=== PATIENT | female | born 1975 | race Caucasian/White ===

== ENCOUNTER 2018-08-08 17:00 | Inpatient (IN) | payer MEDICAID ==
--- NOTE | 2018-08-08 17:35 | ED Physician Chart ---
ED Chief Complaint/HPI - Patient Information Date Seen:: 08/08/18 Time Seen:: 17:10 Chief Complaint:: Chest Pain History of Present Illness:: onset x 3 days of intermittent, exertional, pressure type Chest Pain with Dyspnea, N/V; pt took ASA prior to ER arrival; pt denies trauma, H/As, neck pain , Abd. Pain, A/D/C, fever, chills, or urinary s/s Allergies:: Allergies Allergy/AdvReac Type Severity Reaction Status Date / Time No Known Allergies Allergy Verified 08/08/18 17:14 Vitals:: Vital Signs - 8 hr 08/08/18 17:14 Temp 98.4 F HR 60 RR 12 BP 121/67 O2 Sat % 98 Historian:: Patient, Family Member Review:: Nurse's Note Reviewed, Old Chart Reviewed ED Review of Systems - Review of Systems General/Constitutional: No fever, No chills, No weight loss, No weakness, No diaphoresis, No edema, No loss of appetite Skin: No skin lesions, No rash, No bruising Head: No headache, No light-headedness Eyes: No loss of vision, No pain, No diplopia ENT: No earache, No nasal drainage, No sore throat, No tinnitus Neck: No neck pain, No swelling, No thyromegaly, No stiffness, No mass noted Cardio Vascular: Chest pain, No palpitations, No PND, No orthopnea, No edema Pulmonary: SOB, No cough, No sputum, No wheezing GI: No nausea, No vomiting, No diarrhea, No pain, No melena, No hematochezia, No constipation, No hematemesis G/U: No dysuria, No frequency, No hematuria, No nacturia Infection Control Manager: No vaginal discharge, No abnormal vaginal bleed, No contraction Musculoskeletal: No bone or joint pain, No back pain, No muscle pain Endocrine: No polyuria, No polydipsia Psychiatric: No prior psych history, No depression, No anxiety, No suicidal ideation, No homicidal ideation, No auditory hallucination, No visual hallucination Hematopoietic: No bruising, No lymphadenopathy Allergic/Immuno: No urticaria, No angioedema Neurological: No syncope, No focal symptoms, No weakness, No paresthesia, No headache, No seizure, No dizziness, No confusion, No vertigo ED Past Medical History - Past Medical History Obtainable: Yes Past Medical History: HTN, Dyslipidemia Family History: HTN Social History: Smoker, No Alcohol, No Drug Use, Surgical History: None Psychiatricy History: None Medication: Reviewed ED Physical Exam - Physical Examination General/Constitutional: Awake, Well-developed, well-nourished, Alert, No distress, GCS 15, Non-toxic appearing, Ambulatory Head: Atraumatic Eyes: Lids, conjuctiva normal, PERRL, EOMI Skin: Nl inspection, No rash, No skin lesions, No ecchymosis, Well hydrated, No lymphadenopathy ENMT: External ears, nose nl, TM canals nl, Nasal exam nl, Lips, teeth, gums nl , Oropharynx nl, Tonsils nl Neck: Nontender, Full ROM w/o pain, No JVD, No nuchal rigidity, No bruit, No mass, No stridor Other Neck comments:: supple; no meningeal signs; no cervical tenderness; no bruits Respiratory: Nl effort/Exclusion, Clear to Auscultation, No Wheeze/Rhonchi/Rales Cardio Vascular: RRR, No murmur, gallop, rubs, NL S1 S2, Carotid/Femoral/Distal pulses equal bilaterally GI: No tenderness/rebounding/guarding, No organomegaly, No hernia, Normal BS's, Nondistended, No mass/bruits, No McBurney tenderness, Rectum exam nl Other GI comments:: no pulsatile masses : No CVA tenderness Extremities: No tenderness or effusion, Full ROM, normal strength in all extremities, No edema, Normal digits & nails Neuro/Psych: Alert/oriented, DTR's symmetric, Normal sensory exam, Normal motor strength, Judgement/insight normal, Mood normal, Normal gait, No focal deficits Misc: Normal back, No paraspinal tenderness ED Labs/Radiology/EKG Results - Lab Results Comments:: Reviewed - Radiology Results Comments:: Reviewed - EKG Interpretations EKG Time:: 17:03 Rate & Rhythm: 60; NSR Comments:: ST-T Depression cw Ischemic Changes ED Septic Shock - . Is Septic Shock (SBP<90, OR Lactate>4 mmol\L) present?: No - <6hrs of presentation: Vital Signs: Vital Signs - 8 hr 08/08/18 17:14 Temp 98.4 F HR 60 RR 12 BP 121/67 O2 Sat % 98 ED Reassessment (Disposition) - Reassessment Reassessment Condition:: Improved - Diagnosis Diagnosis:: Chest Pain; Dyspnea; N/V; Angina Pectoris; Myocardial Ischemia; Unstable Angina ; ITP; HTN; Leukocytosis; Elevated D-Dimer; Hyperlipidemia - Aftercare/Follow up Instructions Aftercare/Follow-Up Instructions:: Counseled pt regarding lab results/diagnosis & need follow up, Counseled pt & family regarding lab results/diagnosis & need follow up - Patient Disposition Discharge/Transfer:: Acute Care w/in this hosp Accepting Physician:: Dr. Sorenson Time Called:: 1800 Time Responded:: 18:00 Admitted to:: Telemetry Spoke to:: Dr. Sorenson Admitting Medical Physician:: Dr. Sorenson Condition at Disposition:: Stable, Improved
[2018-08-08 17:37] LABS: INR 1.05 (0.5-1.4); PROTHROMBIN TIME (TEST) 10.9 SECONDS (9.5-11.5)
[2018-08-08 17:41] LABS: % BASOPHILS 0.4 % (0.0-2.0); % LYMPHOCYTES 26.9 % (20.0-50.0); % MONOCYTES 4.8 % (2.0-10.0); % NEUTROPHILS 59.9 % (40.0-80.0); HEMOGLOBIN 12.2 gm/dL (12-16); LYMPHOCYTE ABSOLUTE 3.2 Th/cmm (1.5-3.0); MEAN CELL VOLUME 88.6 fl (81-100); MEAN CORPUSCULAR HEMOGLOBIN 29.3 pg (27.0-31.0); MEAN CORPUSCULAR HGB CONC 33.1 pg (28.0-36.0); MEAN PLATELET VOLUME 8.1 fl; MONOCYTE ABSOLUTE 0.6 Th/cmm (0.3-1.0); NEUTROPHILE ABSOLUTE 7.1 Th/cmm (1.8-8.0); PLATELET COUNT 37 Th/cmm (150-400); RED BLOOD COUNT 4.17 Mil/cmm (3.80-5.10); WHITE BLOOD COUNT 11.9 Th/cmm (4.8-10.8)
[2018-08-08 17:50] LABS: ALB/GLOB RATIO 1.7 (1.0-1.8); ALBUMIN 4.4 gm/dL (3.7-5.3); ALKALINE PHOSPHATASE 59 U/L (34-104); ANION GAP 13.3 (7.0-16.0); BILIRUBIN,TOTAL 1.5 mg/dL (0.3-1.0); BUN - UREA NITROGEN 7 mg/dL (7-25); CALCIUM SERUM 9.5 mg/dL (8.6-10.3); CARBON DIOXIDE 27.5 mEq/L (21.0-31.0); CHLORIDE 100 mEq/L (98-107); CHOLESTEROL 210 mg/dL (<200); CREATININE - SERUM 0.6 mg/dL (0.6-1.2); CREATININE KINASE 76 U/L (30-223); GFR AFRICAN-AMERICAN > 60.0 ml/min (>90); GFR NON AFRICAN-AMERICAN > 60.0 ml/min; GLUCOSE 112 mg/dL (70-105); HDL -HIGH DENSITY LIPOPROTEIN 45 mg/dL (23-92); POTASSIUM SERUM 3.8 mEq/L (3.5-5.1); SGOT 12 U/L (13-39); SGPT/ALT 15 U/L (7-52); SODIUM SERUM 137 mEq/L (136-145); TRIGLYCERIDES 190 mg/dL (<150)
[2018-08-08 18:07] LABS: DDIMER QUANT 428 ng/mL (100-400)
[2018-08-08 20:14] LABS: URINE SOURCE CLEAN C
[2018-08-08 20:18] LABS: URINE BILIRUBIN NEGATIVE (NEGATIVE); URINE BLOOD NEGATIVE (NEGATIVE); URINE GLUCOSE (UA) NEGATIVE (NEGATIVE); URINE KETONE NEGATIVE (NEGATIVE); URINE LEUKOCYTE ESTERASE NEGATIVE (NEGATIVE); URINE NITRATE NEGATIVE (NEGATIVE); URINE PH 6.5 (4.6 - 8.0); URINE PROTEIN NEGATIVE (NEGATIVE); URINE UROBILINOGEN 0.2 E.U./dL (0.2 - 1.0)
[2018-08-08 20:56] LABS: URINE CLARITY HAZY (CLEAR); URINE COLOR YELLOW; URINE MICROSCOPIC INDICATED? YES
[2018-08-08 20:57] LABS: URINE BACTERIA MODERATE /hpf (NONE SEEN); URINE EPITHELIAL CELLS MANY /lpf (FEW); URINE RBC 0-2 /hpf (0-5); URINE WBC 0-2 /hpf (0-5)
[2018-08-08] MEDS: Sodium Chloride 0.9% 1,000 ML IV SCH (21:12)
[2018-08-09] MEDS: HYDROmorphone 1 mg/mL 1mL Syr IVP PRN ×3 (03:09→19:34)
[2018-08-09 05:55] VITALS: BP 116/53
[2018-08-09 08:06] LABS: % BASOPHILS 0.6 % (0.0-2.0); % EOSINOPHILS 1.4 % (0.0-5.0); % LYMPHOCYTES 7.1 % (20.0-50.0); % MONOCYTES 2.7 % (2.0-10.0); % NEUTROPHILS 88.2 % (40.0-80.0); BASOPHILE ABSOLUTE 0.1 Th/cumm (0-0.2); EOSINOPHILE ABSOLUTE 0.2 Th/cmm (0.1-0.4); LYMPHOCYTE ABSOLUTE 1.1 Th/cmm (1.5-3.0); MEAN CELL VOLUME 88.1 fl (81-100); MEAN CORPUSCULAR HEMOGLOBIN 30.1 pg (27.0-31.0); MEAN CORPUSCULAR HGB CONC 34.1 pg (28.0-36.0); MEAN PLATELET VOLUME 7.2 fl; MONOCYTE ABSOLUTE 0.4 Th/cmm (0.3-1.0); NEUTROPHILE ABSOLUTE 14.2 Th/cmm (1.8-8.0); RED BLOOD COUNT 4.31 Mil/cmm (3.80-5.10); RED CELL DISTRIBUTION WIDTH 12.8 % (11.5-20.0)
[2018-08-09 08:18] LABS: ALB/GLOB RATIO 1.6 (1.0-1.8); ALBUMIN 4.2 gm/dL (3.7-5.3); ALKALINE PHOSPHATASE 56 U/L (34-104); ANION GAP 11.2 (7.0-16.0); BILIRUBIN,TOTAL 1.6 mg/dL (0.3-1.0); BUN - UREA NITROGEN 9 mg/dL (7-25); CALCIUM SERUM 9.4 mg/dL (8.6-10.3); CARBON DIOXIDE 30.9 mEq/L (21.0-31.0); CHLORIDE 103 mEq/L (98-107); CREATININE - SERUM 0.7 mg/dL (0.6-1.2); GFR AFRICAN-AMERICAN > 60.0 ml/min (>90); GFR NON AFRICAN-AMERICAN > 60.0 ml/min; GLUCOSE 130 mg/dL (70-105); POTASSIUM SERUM 4.1 mEq/L (3.5-5.1); SGOT 12 U/L (13-39); SGPT/ALT 14 U/L (7-52); SODIUM SERUM 141 mEq/L (136-145); TOTAL PROTEIN,SERUM 6.9 gm/dL (6.0-8.3)
[2018-08-09 08:44] LABS: PLATELET COUNT 22 Th/cmm (150-400)
--- NOTE | 2018-08-09 10:48 | Diagnostic Imaging Report ---
Portable chest x-ray Time: 1828 History: Chest pain Allowing for portable technique the heart size is normal. No focal pulmonary parenchymal processes. No hilar or mediastinal abnormalities. Impression: No acute abnormalities.
--- NOTE | 2018-08-09 10:57 | Diagnostic Imaging Report ---
Exam: CT examination of the pelvis. HISTORY: Abdominal pain Total DLP equals 612 CTDI equals 11.7 Findings: Multiple contiguous thin section of the abdomen pelvis obtained from lower thorax to pubic symphysis without the administration of oral or intravenous contrast material, no prior studies available for comparison. The study demonstrates normal appearance of liver parenchyma. The spleen is large. There is evidence of previous cholecystectomy. The pancreas is normal. Adrenal glands intact. The kidneys demonstrate no evidence of obstructive uropathy or nephrolithiasis. Right renal cyst measuring 1.5 cm appreciated. There is evidence for large ventral hernia containing fat and mesentery no bowel content. There is no evidence of dilatation. The appendix is intact. Mild diverticular process is noted without diverticulitis. The urinary bladder is normal. Prostate gland is prominent. Bony structures demonstrate no evidence for lytic or blastic changes. IMPRESSION: Splenomegaly Status post cholecystectomy Large lower abdominal ventral hernia containing mesenteric fat no evidence of bowel content. Clinical correlation recommended. Mild diverticulosis.
[2018-08-09 11:04] LABS: BAND NEUTROPHILE 0 % (0-10); EOSINOPHIL 1 % (0-5); LYMPHOCYTE 10 % (20-50); MONOCYTE 4 % (2-10); NEUTROPHILS 85 % (40-80)
[2018-08-09] MEDS: Sodium Chloride 0.9% 1,000 ML IV SCH ×2 (11:19→22:24)
[2018-08-09 12:17] LABS: PLATELET ESTIMATE DECREASED PLATELETS (NORMAL)
--- NOTE | 2018-08-09 12:47 | History and Physical ---
History of Present Illness - HPI Chief Complaint: Chest pain, Nausea and vomit HPI: Patient refer that 2 days ago started to have abdominal pain, nausea and vomit and the last vomits were with some blood. Later she pain went to chest and increased reason why she came to ER. During ER evaluation was found Leukocytosis , elevated D-Dimmers, and Thrombocytopenia Vital Signs: Last Vital Signs Temp 97.7 F 08/09/18 12:19 Pulse 70 08/09/18 12:19 Resp 18 08/09/18 12:19 BP 102/56 08/09/18 12:19 Pulse Ox 95 08/09/18 12:19 Past Medical History Cardiovascular: Report: No Pertinent Hx Pulmonary: Report: Asthma [employer]ERSON: Report: No Pertinent Hx GI: Report: Gastritis Psych: Report: Depression Musculoskeletal: Report: No Pertinent Hx Rheumatologic: Report: No pertinent Hx Infectious Disease: Report: No Pertinent Hx Renal/: Report: No Pertinent Hx Endocrine: Report: No Pertinent Hx Dermatology: Report: No Pertinent Hx - Past Surgical History Past Surgical History: No pertinent Hx Family Medical History - Family Member Mother History Unknown: Yes Social History Smoke: No Alcohol: None Drugs: None Lives: With Family Domestic Violence: Negative - Allergies Allergies/Adverse Reactions: Allergies Allergy/AdvReac Type Severity Reaction Status Date / Time No Known Allergies Allergy Verified 08/08/18 17:14 Review of Systems - Review of Systems Constitutional: Report: Weakness Eyes: Report: No Significant ENT: Report: No Significant Respiratory: Report: Other (Chest pressure) Cardiovascular: Report: Chest Pain Gastrointestinal: Report: Abdominal Pain Genitourinary: Report: No Significant Musculoskeletal: Report: No Significant Skin: Report: No Significant Neurological: Report: Weakness Physical Exam - Physical Exam HEENT: Report: Ears Nose Throat within normal limits Neck: Report: Within normal limits Cardiovascular Systems: Report: Regular, Rate and Rhythm Respiratory: Report: Breath Sounds are within normal limits Abdomen: Report: Tender to palpation Back: Report: Inspection of back is within normal limits. Extremities: Report: Non-tender to palpation. Skin: Report: Color of skin is within normal limits, Warm, Dry Neuro/Psych: Report: Mood affect is within normal limits - Lab Results All Lab Results last 24 hours: Laboratory Results - last 24 hr 08/08/18 08/08/18 08/08/18 17:16 17:16 17:16 WBC 11.9 H RBC 4.17 Hgb 12.2 Hct 37.0 L MCV 88.6 MCH 29.3 MCHC Differential 33.1 RDW 13.0 Plt Count 37 L MPV 8.1 Neutrophils % 59.9 Band Neutrophils % Lymphocytes % 26.9 Monocytes % 4.8 Eosinophils % 8.0 H Basophils % 0.4 Neutrophils (Manual) Lymphocytes Monocytes Eosinophils Platelet Estimate RBC Morph Micro Appear PT 10.9 INR 1.05 D-Dimer 428 H Sodium 137 Potassium 3.8 Chloride 100 Carbon Dioxide 27.5 Anion Gap 13.3 BUN 7 Creatinine 0.6 Est GFR ( Amer) > 60.0 Est GFR (Non-Af Amer) > 60.0 BUN/Creatinine Ratio 11.7 Glucose 112 H Calcium 9.5 Total Bilirubin 1.5 H AST 12 L ALT 15 Alkaline Phosphatase 59 Creatine Kinase 76 Troponin I B-Natriuretic Peptide Total Protein 7.0 Albumin 4.4 Globulin 2.6 Albumin/Globulin Ratio 1.7 Triglycerides 190 H Cholesterol 210 H LDL Cholesterol Direct 161 HDL Cholesterol 45 Serum , Qual Urine Source Urine Color Urine Clarity Urine pH Ur Specific [place] Urine Protein Urine Glucose (UA) Urine Ketones Urine Blood Urine Nitrate Urine Bilirubin Urine Urobilinogen Ur Leukocyte Esterase Urine RBC Urine WBC Ur Epithelial Cells Urine Bacteria 08/08/18 08/08/18 08/08/18 17:16 17:16 17:16 WBC RBC Hgb Hct MCV MCH MCHC Differential RDW Plt Count MPV Neutrophils % Band Neutrophils % Lymphocytes % Monocytes % Eosinophils % Basophils % Neutrophils (Manual) Lymphocytes Monocytes Eosinophils Platelet Estimate RBC Morph Micro Appear PT INR D-Dimer Sodium Potassium Chloride Carbon Dioxide Anion Gap BUN Creatinine Est GFR ( Amer) Est GFR (Non-Af Amer) BUN/Creatinine Ratio Glucose Calcium Total Bilirubin AST ALT Alkaline Phosphatase Creatine Kinase Troponin I < 0.01 L B-Natriuretic Peptide < 5.0 L Total Protein Albumin Globulin Albumin/Globulin Ratio Triglycerides Cholesterol LDL Cholesterol Direct HDL Cholesterol Serum , Qual NEGATIVE Urine Source Urine Color Urine Clarity Urine pH Ur Specific [place] Urine Protein Urine Glucose (UA) Urine Ketones Urine Blood Urine Nitrate Urine Bilirubin Urine Urobilinogen Ur Leukocyte Esterase Urine RBC Urine WBC Ur Epithelial Cells Urine Bacteria 08/08/18 08/09/18 08/09/18 19:29 07:20 07:20 WBC 16.0 H D RBC 4.31 Hgb 13.0 Hct 38.0 L MCV 88.1 MCH 30.1 MCHC Differential 34.1 RDW 12.8 Plt Count 22 L* D MPV 7.2 Neutrophils % 88.2 H Band Neutrophils % 0 Lymphocytes % 7.1 L Monocytes % 2.7 Eosinophils % 1.4 Basophils % 0.6 Neutrophils (Manual) 85 H Lymphocytes 10 L Monocytes 4 Eosinophils 1 Platelet Estimate DECREASED PLATELETS RBC Morph Micro Appear NORMAL PT INR D-Dimer Sodium 141 Potassium 4.1 Chloride 103 Carbon Dioxide 30.9 Anion Gap 11.2 BUN 9 Creatinine 0.7 Est GFR ( Amer) > 60.0 Est GFR (Non-Af Amer) > 60.0 BUN/Creatinine Ratio 12.9 Glucose 130 H Calcium 9.4 Total Bilirubin 1.6 H AST 12 L ALT 14 Alkaline Phosphatase 56 Creatine Kinase Troponin I B-Natriuretic Peptide Total Protein 6.9 Albumin 4.2 Globulin 2.7 Albumin/Globulin Ratio 1.6 Triglycerides Cholesterol LDL Cholesterol Direct HDL Cholesterol Serum , Qual Urine Source CLEAN C Urine Color YELLOW Urine Clarity HAZY Urine pH 6.5 Ur Specific [place] 1.010 Urine Protein NEGATIVE Urine Glucose (UA) NEGATIVE Urine Ketones NEGATIVE Urine Blood NEGATIVE Urine Nitrate NEGATIVE Urine Bilirubin NEGATIVE Urine Urobilinogen 0.2 Ur Leukocyte Esterase NEGATIVE Urine RBC 0-2 Urine WBC 0-2 Ur Epithelial Cells MANY Urine Bacteria MODERATE H - Assessment Assessment: Patient is awake, alert, calm, in no acute distress. Dx: Abdominal pain, Thrombocytopenia, Leukocytosis, Elevated D-Dymers. - Plan Plan: Patient is in IV NS, Pain control, IV AB, Consult with Hematology and GI requested. Will continue to monitor.
--- NOTE | 2018-08-09 18:48 | History & Physical ---
ADMIT DATE: 08/09/2018 HEMATOLOGY/ONCOLOGY CONSULTATION REFERRED BY: Dr. Sorenson. REASON FOR CONSULTATION: Thrombocytopenia. HISTORY OF PRESENT ILLNESS: The patient is a 42-year-old female, who was admitted with abdominal pain, chest pain, and vomiting. She denied bleeding from any site. She was found to have a platelet count of 22,000 today and on admission it was 37,000, therefore, I was asked to evaluate. The patient also had elevated white count and left shift on admission with abnormal bilirubin of 1.6. Otherwise, the transaminases are normal. PAST MEDICAL HISTORY: Bronchial asthma, depression, insomnia. MEDICATIONS: Antidepressants, melatonin, and inhalers for the asthma. PAST SURGICAL HISTORY: Gallbladder surgery, tubal ligation, and hysterectomy. SOCIAL HISTORY: Denied drinking. MEDICATIONS: She is on Zosyn, Zofran, Dilaudid, and Ambien. PHYSICAL EXAMINATION: GENERAL: She is awake, not in distress. VITAL SIGNS: Stable, afebrile. HEENT: Atraumatic. No mucosal lesions. NECK: Supple. CHEST: Good air entry. ABDOMEN: Soft, hernia paraumbilical reducible, tender in the epigastric and parumbilical area. SKIN: No evidence of ecchymosis or hematomas. LABORATORY DATA: White count 16, hemoglobin 13, platelets 22. Mean platelet volume 7.2, creatinine 0.7, bilirubin total 1.6. A CT scan of the abdomen reported splenomegaly, ventral hernia, diverticulosis, and status post cholecystectomy. ASSESSMENT: Low platelet count of unknown duration. The patient has splenomegaly on CT scan, which probably suggests chronic thrombocytopenia. The patient does not have bleeding and no transfusion is needed. Whether there is another etiology contributing to the thrombocytopenia that will remained to be identified. The elevated bilirubin will be worked up by obtaining a total and direct bilirubin. I will discontinue the Zosyn and switch to Rocephin because of the low platelet count. I will start steroids IV to see if there is an immune component to the thrombocytopenia that might be correctable with the use of steroids. The patient is being worked up by the auto body customizer for hepatitis and there is no evidence of hemolysis to suggest microangiopathic hemolysis with thrombocytopenia. No need to transfuse as long as the patient does not have bleeding. The coagulation workup, INR was normal on admission. I will obtain fibrinogen and PTT. If the white count remains elevated and platelets do not respond to steroids, I will consider bone marrow biopsy following evaluation since the splenic sequestration is a diagnosis of exclusion. Thank you, Dr. Sorenson, for the opportunity to participate in the care of this interesting case with you. [facility]# [id number]
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
[2018-08-09] MEDS ORDERED: cefTRIAXone 1 GM in Sodium Chloride 0.9% 50 ML IV SCH (20:00)
[2018-08-09] MEDS ORDERED: methylPREDNISolone SS 40 mg Vial IVP SCH (21:00)
--- NOTE | 2018-08-10 02:23 | Consultation ---
DATE OF CONSULTATION: 08/09/[address] Sorenson HISTORY OF PRESENT ILLNESS: This is a 42-year-old female patient complaining of epigastric pain, nausea, vomiting. Following this, the patient developed chest pain and numbness in the left arm. The patient came to the Emergency Room. The patient has nonspecific ST-segment changes and the patient is admitted. PAST MEDICAL HISTORY: The patient has a history of hypertension, hyperlipidemia, ventral hernia, splenomegaly. FAMILY HISTORY: Unremarkable. SOCIAL HISTORY: No history of smoking, alcohol abuse. ALLERGIES: None. PHYSICAL EXAMINATION: VITAL SIGNS: Blood pressure 121/50, pulse 70, respirations 20. HEAD: Normocephalic. No lumps or bumps. EYES: Pupils equal, reactive to light. Fundi show AV nicking, sclerae white, conjunctivae pink. NECK: Carotid 2+. Normal upstroke. JVD flat. Thyroid not palpable. Lymph nodes not palpable. CHEST: Shows increased AP diameter. No kyphosis, scoliosis. LUNGS: Bilateral bronchovesicular breath sounds. HEART: PMI fifth intercostal space with lateral to midclavicular line. S1, S2. No S3, S4, soft systolic murmur. ABDOMEN: Soft. Liver, spleen not palpable. No organomegaly. Bowel sounds active. NEUROLOGIC: Unremarkable. EXTREMITIES: Peripheral pulses 2+. No pedal edema. CLINICAL IMPRESSION: Atypical chest pain, acute gastritis, hypertension, hyperlipidemia, ventral hernias, splenomegaly. PLAN: The patient will continue present care. Troponin levels normal. We will give IV fluids and monitor the patient. We will also get echocardiogram. [facility]# [id number]
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
--- NOTE | 2018-08-10 16:41 | Cardiology ---
08/09/[address] Sorenson. M-MODE ECHOCARDIOGRAM: Mitral valve, anterior leaflet of the mitral valve shows normal excursion, EF velocity. Posterior leaflet of the mitral valve shows normal excursion. Left ventricular posterior wall shows increased thickness, normal excursion. Interventricular septum shows increased thickness, normal excursion, hypertrophy of the left ventricle, ejection fraction 73%. Left atrium normal. Aortic root shows normal dimension, normal excursion of aortic leaflets. CONCLUSION: Minimal hypertrophy of the left ventricle, ejection fraction 73%. 2D ECHO: Long axis view showed normal sized left ventricle with hypertrophy of the left ventricle. Left atrium normal. Aortic root shows normal dimension and normal excursion of aortic leaflets. Short axis view of mitral valve normal. Short axis view of aortic valve normal. Apical four chamber view showed normal sized left ventricle, left atrium, right ventricle, right atrium, tricuspid and mitral valve, ejection fraction 73%. CONCLUSION: 2D echo shows hypertrophy of the left ventricle, ejection fraction 73%. Doppler study shows trace mitral regurgitation, trace tricuspid regurgitation, mild pulmonary regurgitation, right ventricular systolic pressure 29 mmHg. [facility]# [id number]
--- NOTE | 2018-08-11 10:25 | Discharge Summary ---
General Discharge Summary - Discharge Summary Date of Admission: 08/08/18 Admitting Diagnosis: Abdominal pain, Thrombocytopenia, Elevated WBC Discharge Date: 08/10/18 Discharge Diagnosis: Abdominal pain, Leukocytosis, Thrombocytopenia, Elevated D- Dimmers. Hospital Course: Patient was started in IV NS, Pain control, IV AB, and continue with home meds. For insurance requerst she was transfered to other hospita. She was follow by GI and Cardio. Condition at Discharge: Stable Disposition: TRANSFER TO ACUTE HOSP Activity: As Tolerated Discharge Diet: 2 Gram Sodium Consults and Follow-Up: [facility] [Other] not on staff,PCP is [Primary Care Provider] - Consulting Speciality: Cardiac, GI Instructions: Peptic Ulcer Disease, Chest Wall Pain, [id number]
== END 2018-08-10 03:23 | disposition short-term general hospital (02) | DRG 241 ==
LOC: ER 17:00 → TELE 18:49
PROVIDERS: ADMIT General Practice; ATTEND General Practice
DX: K29.00 Acute gastritis without bleeding (principal); D69.3 Immune thrombocytopenic purpura; F33.1 Major depressive disorder, recurrent, moderate; D69.6 Thrombocytopenia, unspecified; R16.1 Splenomegaly, not elsewhere classified; D72.829 Elevated white blood cell count, unspecified; K43.9 Ventral hernia without obstruction or gangrene; R07.89 Other chest pain; I25.9 Chronic ischemic heart disease, unspecified; I10 Essential (primary) hypertension; E78.5 Hyperlipidemia, unspecified; R74.8 Abnormal levels of other serum enzymes; J45.909 Unspecified asthma, uncomplicated; F17.210 Nicotine dependence, cigarettes, uncomplicated
CPT/HCPCS: 36415-UA; 71045-TC; 80053-TC; 80061-TC; 81001-TC; 82550-TC; 83880-TC; 84484-TC; 84703-TC; 85007-TC; 85025-TC; 85379-TC; 85610-TC; 86850-TC; 86900-TC; 86901-TC; 87086-90; 93005; 94760; J0696; J1170; J2405; J2543; J2920; J7030; Z7610